=== PATIENT | female | born 1965 | race African-American/Black ===

== ENCOUNTER 2020-12-01 00:39 | Emergency (ER) | payer OTHER ==
[~2020-12-01] VITALS: Ht 165.1 cm; Wt 65.8 kg
[2020-12-01 00:46] VITALS: BP_SYST 133
[2020-12-01 02:58] VITALS: BP_SYST 133
== END 2020-12-01 02:58 | disposition home or self-care (01) ==
LOC: SED 00:39
DX: S50.861A Insect bite (nonvenomous) of right forearm, initial encounter (principal); W57.XXXA Bitten or stung by nonvenomous insect and other nonvenomous arthropods, initial encounter; Y93.89 Activity, other specified; Y92.89 Other specified places as the place of occurrence of the external cause; Y99.8 Other external cause status
CPT/HCPCS: 99281